=== PATIENT | male | born 1980 | race Caucasian/White ===

== ENCOUNTER 2020-12-03 10:40 | Emergency (ER) | payer OTHER ==
[2020-12-03 11:20] LABS: BASOPHIL 0.5 % (0-2); HCT 46.1 % (42.0-52.0); HGB 16.6 g/dl (13.2-18.0); LYMPHOCYTE 30.7 % (15-48); MCV 88.8 fL (78.0-100.0); MONOCYTE 7.2 % (0-12); MPV 10.2 fL (6.0-9.5); NEUTROPHIL 59.2 % (41-80); NRBC 0; PLT 304 K/uL (150-400); RBC 5.19 M/uL (4.70-6.00); RDW 12.1 % (11.5-14.0); WBC 16.8 K/uL (4.0-10.5)
[2020-12-03 11:38] LABS: ALBUMIN 4.3 g/dL (3.4-5.0); BILIRUBIN - TOTAL 0.6 mg/dL (0.2-1.0); BUN/CREAT RATIO (CALC) 15.2 RATIO; CREATININE 1.12 mg/dL (0.67-1.17); GLOBULIN (CALCULATION) 3.7 g/dL; POTASSIUM 3.3 mmol/L (3.5-5.1)
[2020-12-03 12:57] LABS: BILIRUBIN 1+ mg/dL (NEGATIVE); BLOOD 3+ Ery/uL (NEGATIVE); CLARITY CLEAR (CLEAR); COLOR YELLOW (YELLOW); GLUCOSE (U) NORMAL (NORMAL); LEUKOCYTES NEGATIVE Leu/uL (NEGATIVE); NITRITE NEGATIVE (NEGATIVE); PROTEIN 1+ mg/dL (NEGATIVE)
[2020-12-03 13:04] LABS: BACTERIA TRACE; SQUAMOUS EPITHELIAL CELLS RARE; URINARY RBC TNTC
[2020-12-03] MEDS ORDERED: ONDANSETRON ODT4 MG PO (13:20)
[2020-12-03] MEDS ORDERED: FLOMAX0.4 MG PO (13:20)
[2020-12-03] MEDS ORDERED: NORCO 5-325 TA1 EACH PO (13:20)
== END 2020-12-03 13:30 | disposition home or self-care (01) ==
LOC: FER 10:40
PROVIDERS: Emergency Medicine
DX: N13.2 Hydronephrosis with renal and ureteral calculous obstruction (principal); Z87.442 Personal history of urinary calculi
CPT/HCPCS: 36415; 80053; 81001; 85025; J1170; J1885; J2270; J2405; J7030